=== PATIENT | female | born 1940 | race Caucasian/White ===

== ENCOUNTER → 2018-08-12 | Outpatient (CLI) | payer OTHER | LOC: M.RAD 12:50 | DX: Z12.31 Encounter for screening mammogram for malignant neoplasm of breast (principal) ==

== ENCOUNTER → 2019-02-23 | Outpatient (CLI) | payer OTHER | LOC: M.RAD 08:48 | DX: M85.89 Other specified disorders of bone density and structure, multiple sites (principal); Z91.89 Other specified personal risk factors, not elsewhere classified; Z78.0 Asymptomatic menopausal state ==

== ENCOUNTER → 2019-08-14 | Outpatient (CLI) | payer OTHER | LOC: M.RAD 08:26 | DX: Z12.31 Encounter for screening mammogram for malignant neoplasm of breast (principal) ==

== ENCOUNTER 2019-09-22 11:09 | Emergency (ER) | payer OTHER ==
[~2019-09-22] VITALS: Ht 160 cm; Wt 61.2 kg
[2019-09-22] MEDS ORDERED: PRAVASTATIN SOD20 MG PO (11:24)
[2019-09-22 12:28] VITALS: BP 155/70
== END 2019-09-22 12:30 | disposition home or self-care (01) ==
LOC: M.ERS 11:09
DX: S00.31XA Abrasion of nose, initial encounter (principal); R04.0 Epistaxis; E78.00 Pure hypercholesterolemia, unspecified; Z88.0 Allergy status to penicillin; Z88.1 Allergy status to other antibiotic agents; Z88.8 Allergy status to other drugs, medicaments and biological substances; X58.XXXA Exposure to other specified factors, initial encounter; Y93.89 Activity, other specified; Y92.89 Other specified places as the place of occurrence of the external cause; Y99.8 Other external cause status

== ENCOUNTER → 2020-08-16 | Outpatient (CLI) | payer OTHER ==
[~2020-08-16] MED LIST: PRAVASTATIN SOD20 MG PO
== END ==
LOC: M.RAD 09:30
PROVIDERS: ATTEND Internal Medicine
DX: Z12.31 Encounter for screening mammogram for malignant neoplasm of breast (principal)

== ENCOUNTER → 2021-08-18 | Outpatient (CLI) | payer OTHER | LOC: M.RAD 08:49 | PROVIDERS: ATTEND Internal Medicine | DX: Z12.31 Encounter for screening mammogram for malignant neoplasm of breast (principal) ==